=== PATIENT | male | born 1960 | race African-American/Black ===

== ENCOUNTER 2019-12-08 19:28 | Emergency (ER) | payer MEDICAID, OTHER ==
[~2019-12-08] VITALS: Ht 180.3 cm; Wt 83.5 kg
--- NOTE | 2019-12-08 20:18 | NUR ---
[facility] FROM STREET TO ER BED 14. AAOX4. NOT IN RESP DISTRESS.BROUGHT IN ON A GURNEY, USUALLY AMBULATES W/ AN AIDE OF A WHEELCHAIR. BROUGHT IN FOR R HIP PAIN S/P GLF YESTERDAY. PER PT, HE HAS CHRONIC HIP PAIN FOR 2 YRS BUT HURTS MORE BECAUSE OF THE FALL. PT DID REPORT HITTING HIS HEAD. NALDO. ROSALINO MCDONNELL AT THE BEDSIDE FOR EVAL. ORDERS RECEIVED NOTED AND CARRIED OUT.
--- NOTE | 2019-12-08 22:06 | NUR ---
Patient discharged to home in stable condition. Written and verbal after care instructions given. Patient verbalizes understanding of instruction. Homeless waiver signed by the pt.
[2019-12-08 22:24] VITALS: BP 112/75
== END 2019-12-08 22:24 | disposition home or self-care (01) ==
LOC: ER 19:29
DX: G89.29 Other chronic pain (principal); M25.551 Pain in right hip; Z59.0 Homelessness; Z98.890 Other specified postprocedural states; Z88.6 Allergy status to analgesic agent; Z88.8 Allergy status to other drugs, medicaments and biological substances
CPT/HCPCS: 73502